=== PATIENT | female | born 1975 | race Caucasian/White ===

== ENCOUNTER → 2021-05-20 | Outpatient (CLI) | payer OTHER ==
[~2021-05-20] VITALS: Ht 157.5 cm; Wt 87.5 kg
[~2021-05-20] MED LIST: IBUP-1815 PO; LISI10TA16 PO; MULT-245 PO; OMEP20TA63 PO; SINCALIDE 1.8 MCG in IV NORMAL SALINE 50ML 30 ML IV ONE; [UNRECOGNIZED DRUG - CODE] PO
--- NOTE | 2021-05-20 11:16 | RAD ---
EXAM: Nuclear hepatobiliary scan. HISTORY: Pain. TECHNIQUE: Following intravenous administration of 5.4 mCi Tc 99m Choletec, anterior images of the ab domen were obtained at five minute intervals through one hour. Subsequently, 1.8 mcg sincalide was ad ministered and additional images to assess gallbladder ejection fraction were obtained. FINDINGS: There is prompt radiotracer uptake by the liver. No focal defect is seen. There is normal e xcretion into the biliary tree. The gallbladder is visualized within 10 minutes and there is free osito w into the duodenum. The gallbladder ejection fraction is 97%. IMPRESSION: High gallbladder ejection fraction of 97%. This can be associated with biliary hyperkines ia. Electronically signed by: Nemo Chávez MD (05/20/2021 11:14 AM) [id number]
== END ==
LOC: NM 07:58
PROVIDERS: ATTEND Internal Medicine Gastroenterology
DX: R10.11 Right upper quadrant pain (principal)
CPT/HCPCS: 78227; A9537; J2805

== ENCOUNTER 2021-07-18 07:16 | Day surgery (SDC) | payer OTHER ==
[~2021-07-18] VITALS: Ht 157.5 cm; Wt 84.0 kg
[~2021-07-18 07:16] MED LIST changes: +ACET325T9 PO; +AMIT25TA PO; +DIPH25CA58 PO; +HYDROmorphone 2 MG/ML VIAL IVP PRN; +IBUP-1007 PO; +IBUP-1739 PO; -IBUP-1815 PO; +IV RINGERS,LACTATED 1000ML 1,000 ML IV SCH; +MORPHINE SULFATE 2 MG/ML INJ. IVP PRN; +PROCHLORPERAZINE 10 MG/2 ML VIAL. IVP PRN; -SINCALIDE 1.8 MCG in IV NORMAL SALINE 50ML 30 ML IV ONE; +fentaNYL PF VIAL 100 MCG/2 ML VIAL IVP PRN
[2021-07-18 07:48] VITALS: BP 141/81
[2021-07-18] MEDS ORDERED: SCOPOLAMINE 1.5MG PATCH. TD ONE (08:00)
[2021-07-18] MEDS ORDERED: PROPOFOL 10 MG/ML (20ML) VIAL. IV ONE (08:01)
[2021-07-18] MEDS ORDERED: MIDAZOLAM HCL/PF 2 MG/2 ML VIAL. ONE (08:01)
[2021-07-18] MEDS ORDERED: ROCURONIUM 50 MG/5 ML VIAL. ONE (08:01)
[2021-07-18] MEDS ORDERED: LIDOCAINE 2% PF 5 ML VIAL. ONE (08:01)
[2021-07-18] MEDS ORDERED: fentaNYL PF VIAL 250 MCG/5 ML VIAL ONE (08:02)
[2021-07-18] MEDS ORDERED: SURGICEL HEMOSTAT 4X8 EACH. ONE (08:31)
[2021-07-18] MEDS ORDERED: IOHEXOL 300 MG/ML 50 ML VIAL. ONE (08:31)
[2021-07-18] MEDS ORDERED: BUPIVACAINE MPF 0.5% 30 ML VIAL. ONE (08:32)
[2021-07-18] MEDS ORDERED: DEXAMETHASONE SOD PHOS 4 MG/ML VIAL ONE (09:04)
[2021-07-18] MEDS ORDERED: ONDANSETRON PF 4 MG/2 ML VIAL. ONE (09:04)
[2021-07-18] MEDS ORDERED: ATROPINE 0.5 MG/5 ML DISP.SYRINGE. ONE (09:27)
[2021-07-18] MEDS ORDERED: GLYCOPYRROLATE 1 MG/5 ML VIAL. ONE (09:28)
[2021-07-18] MEDS ORDERED: NEOSTIGMINE METHYLSULFATE 5 MG/5 ML SYRINGE. ONE (09:28)
[2021-07-18] MEDS ORDERED: DEXMEDETOMIDINE 200 MCG/2 ML VIAL. IV ONE (09:30)
[2021-07-18] MEDS ORDERED: SEVOFLURANE 61 TO 120 MINUTES. IH ONE (10:01)
--- NOTE | 2021-07-18 10:05 | PDOC4 ---
Operative Note Operative Note Operative Note: Preoperative Diagnosis: Biliary dyskinesia Postoperative Diagnosis: Same Procedure: Laparoscopic cholecystectomy Surgeons: Armando Warehouse Stock Clerk: Sole SAMUELS Anesthesia: Gen. Estimated Blood Loss: 10 mL Specimen: Gallbladder to pathology Drains: None Complications: None Indications: The patient is a 46-year-old female who was referred with suspected biliary dyskinesia. Surgical treatment was offered by means of a laparoscopic cholecystectomy. The risks of surgery were discussed which include bleeding, infection, bile duct injury, bile leak, pain, the potential for additional surgeries or procedures. The patient understands and would like to proceed. Description: The patient was taken to the operating room and laid supine on the operating table. General anesthesia was performed. The abdomen was prepped with ChloraPrep and draped in a standard surgical fashion. A small infraumbilical incision was made with a scalpel. The Veress needle was then inserted and a pneumoperitoneum was then created. A 5 mm trocar was then inserted and the laparoscope was introduced. In the upper midabdomen a 5 mm trocar was inserted and in the right upper quadrant two 2.3 mm mini lap graspers were inserted. The gallbladder was retracted cephalad. The cystic duct was dissected free from surrounding tissues. The cystic duct was of a very small caliber, and a small opening was made in the duct for a cholangiogram. There was return of a small amount of bile. We attempted a cholangiogram as is per our usual routine however we were unable to due to the very small diameter of the duct which did not allow cannulation. After several attempts we elected to forego the cholangiogram. Three clips were placed on the cystic duct and it was divided. The cystic artery was then identified, dissected free, doubly clipped and divided as well. The gallbladder was then mobilized away from the liver with cautery. The umbilical 5 millimeter trocar was exchanged for an 11 millimeter trocar. The gallbladder was then placed in an endoscopic bag and extracted at the umbilical trocar site. The fascia there was closed with an 0 Vicryl suture and infiltrated with 0.5% marcaine. All blood and irrigation fluid was suctioned and hemostasis was good. The remaining ports were removed and the pneumoperitoneum was relieved. The skin incisions were closed using 4-0 Monocryl suture. Steri-Strips and dressings were then applied. The patient tolerated the procedure well and was sent to the recovery room in stable condition. At the end of the case all counts were correct. DILCIA FERNANDEZ MD Jul 18, 2021 10:05
[2021-07-18] MEDS ORDERED: OXYC-325 PO (10:06)
--- NOTE | 2021-07-18 10:08 | DISCH ---
DISCHARGE INSTRUCTIONS Condition on Discharge Condition on Discharge: Stable Activity After Discharge Activity Instructions for Disc: Other, see below (no lifting over 20 lbs X 2 weeks) Diet after Discharge Diet after Discharge: Regular Wound Incision Care Wound/Incision Care: Other, see below (may remove bandaids tomorrow and shower) Follow-Up Follow up with: Dr Fernandez in 2 weeks in office, call for appt [phone] DILCIA FERNANDEZ MD Jul 18, 2021 10:08
[2021-07-18] MEDS ORDERED: oxyCODONE/APAP 5/325 1 TAB TABLET PO ONE (10:30)
[2021-07-18 10:55] VITALS: BP 112/65
--- NOTE | 2021-07-19 15:23 | PATHOLOGY ---
[facility] Accession Number: [id number] . 01 Material submitted: . gallbladder - GALLBLADDER . 01 Clinical history: . BILIARY DYSKINESIA LAPAROSCOPIC CHOLECYSTECTOMY . 02 Diagnosis: Gallbladder, laparoscopic cholecystectomy: - Cholesterolosis, focal. - Chronic cholecystitis. (JPM:tessie; 07/19/2021) [facility] 07/19/2021 1348 Local . 02 Comment: There are no calculi identified within the gallbladder lumen or specimen container. There is no evidence of malignancy. (JPM:tessie; 07/19/2021) . 02 Electronically signed: . Doe Tomlinson MD, Pathologist NPI- [id number] . 01 Gross description: . Fixative: Formalin Labeled: Gallbladder Specimen received: Intact gallbladder Dimensions: 8.5 x 3.9 x 2.3 cm Serosa: Light saunders-correia Lymph node: None identified Mucosa: Yellow stippling Average wall thickness: 0.1 cm Calculi: None identified Abnormalities: None identified . A1- Surface [employer] Operator body, fundus, and the cystic duct margin. ([facility]; 07/18/2021) [facility] 07/18/2021 1701 Local . 02 Pathologist provided ICD-10: K81.1, K82.4 . 02 CPT . 820939 Specimen Comment: A courtesy copy of this report has been sent to [phone] Specimen Comment: Report sent to Performed at: 01 [facility] [address] [facility] [address], [place] [id number] MD Carlitos Cota MD Phone: [phone] Performed at: 02 [facility] [address], [place] [id number] MD Doe Tomlinson MD Phone: [phone]
== END 2021-07-18 11:40 | disposition home or self-care (01) ==
LOC: SURG 07:16
PROVIDERS: ATTEND Surgery
DX: K82.8 Other specified diseases of gallbladder (principal); K81.1 Chronic cholecystitis; I10 Essential (primary) hypertension; K21.9 Gastro-esophageal reflux disease without esophagitis; Z90.710 Acquired absence of both cervix and uterus; Z98.890 Other specified postprocedural states; Z79.899 Other long term (current) drug therapy
CPT/HCPCS: 47562; A4213; A4314; A4364; A4930; A6219; C1887; J0461; J0690; J1100; J2250; J2405; J2704; J2710; J3010; J3490; Q9967; 88304; A4452; A4657